=== PATIENT | male | born 1955 | race Hispanic/Latino ===

== ENCOUNTER 2018-07-09 12:42 | Emergency (ER) | payer OTHER ==
[~2018-07-09] VITALS: Ht 180.3 cm; Wt 90.7 kg
[2018-07-09] MEDS ORDERED: NITROGLYCERIN 2% OINT 1 GM PKT TOP ONE (13:00)
[2018-07-09] MEDS ORDERED: ACETAMINOPHEN 325 MG TAB PO ONE (13:00)
[2018-07-09] MEDS ORDERED: FUROSEMIDE INJ 10 MG/ML 4 ML VIAL IV ONE (13:00)
[2018-07-09 13:08] LABS: BASOPHILS # (AUTO) 0.1 (0.0-0.1); EOSINOPHILS # (AUTO) 0.1 (0.0-0.4); EOSINOPHILS % 1.5 % (0.0-6.0); HEMATOCRIT 40.8 % (38.2-49.6); HEMOGLOBIN 13.9 g/dL (14.0-18.0); LYMPHOCYTES # (AUTO) 3.1 (1.0-3.2); MEAN CORPUSCULAR HEMOGLOBIN 30.5 pg (28-32); MEAN CORPUSCULAR HGB CONC 34.1 g/dL (31-35); MEAN CORPUSCULAR VOLUME 89.7 fL (81-99); MONOCYTES # (AUTO) 0.6 (0.2-0.8); MONOCYTES % 7.7 % (4.4-11.3); PLATELET COUNT 248 x10e3/uL (140-360); RED BLOOD COUNT 4.55 x10e6/uL (4.3-5.7); RED CELL DISTRIBUTION WIDTH 13.4 % (11.7-14.4)
[2018-07-09 13:16] LABS: INR 1.13; PARTIAL THROMBOPLASTIN TIME 26.4 seconds (23.8-35.5); PROTHROMBIN TIME 13.6 seconds (11.9-14.5)
[2018-07-09 13:23] LABS: ALANINE AMINOTRANSFERASE 39 IU/L (0-55); ALBUMIN 3.9 g/dL (3.5-5.0); ALBUMIN/GLOBULIN RATIO 0.9 (0.8-2.0); ALKALINE PHOSPHATASE 43 IU/L (40-150); ANION GAP 14.8 mmol/L (8-16); BLOOD UREA NITROGEN 19 mg/dL (7-26); BUN/CREATININE RATIO 19 (6-25); CALCIUM 9.7 mg/dL (8.4-10.2); CARBON DIOXIDE 21 mmol/L (22-29); CHLORIDE 104 mmol/L (98-107); CREATINE KINASE 185 IU/L (30-200); CREATININE, SERUM 1.02 mg/dL (0.72-1.25); EST GLOMERULAR FILTRATION RATE > 60 ML/MIN (60-); GLUCOSE 92 mg/dL (74-118); POTASSIUM 3.8 mmol/L (3.5-5.1); SODIUM 136 mmol/L (136-145)
--- NOTE | 2018-07-09 13:32 | Diagnostic Imaging Report ---
EXAMINATION: CHEST SINGLE (PORTABLE) COMPARISON: None INDICATION: Shortness of breath DISCUSSION: Frontal view of the chest obtained at 1309 hours. HEART AND MEDIASTINUM: The cardiomediastinal silhouette is top normal in size. This may be due to portable technique. LINES: None. LUNGS: The lungs are well inflated and clear. Pulmonary vasculature is mildly prominent PLEURA: No pleural effusion or pneumothorax. BONES AND SOFT TISSUES: No focal osseous lesion. The soft tissues are normal. IMPRESSION: Mild pulmonary vascular congestion. Signed by: Dr. Dasia Pate MD on 07/09/2018 1:28 PM
[2018-07-09 14:18] VITALS: BP 118/89
--- OUTSIDE RECORDS SUMMARY | 2018-08-08 03:18 | XMS REPORT ---
Author Author [facility] Organization [facility] Address Unknown Phone Unavailable Care Team Providers Care Skimmer Name Role Phone PETERSON, Pat ROHYATT Unavailable Unavailable Payers Payer Name Policy Type Policy Number Effective Date Expiration Date Problems This patient has no known problems. Allergies, Adverse Reactions, Alerts Allergy Name Allergy Type Status Severity Reaction(s) Onset Date Inactive Date Treating Clinician Comments No Known Allergies DA Active U 2018-07-04 00:00:00 Medications This patient has no known medications. Results Test Description Test Time Test Comments Text Results Atomic Results Result Comments CHEST SINGLE (PORTABLE) 2018-07-09 13:28:00 [place] [address] Patient Name: MELBA DE LEON MR #: [id number] : 1955 Age/Sex: 63/M Req #: [id number] Adm Physician: Ordered by: KIKO ROBLES [employer] APPRENTICE Report #: [id number] Location: ER Room/Bed: Procedure: [id number] DX/CHEST SINGLE (PORTABLE) Exam Date: 07/09/18 Exam Time: 1320 REPORT STATUS: Signed EXAMINATION: CHEST SINGLE (PORTABLE) COMPARISON: None INDICATION: Shortness of breath DISCUSSION: Frontal view of the chest obtained at 1309 hours. HEART AND MEDIASTINUM: The cardiomediastinal silhouette is top normal in size. This may be due to portable technique. LINES: None. LUNGS: The lungs are well inflated and clear. Pulmonary vasculature is mildly prominent PLEURA: No pleural effusion or pneumothorax. BONES AND SOFT TISSUES: No focal osseous lesion. The soft tissues are normal. IMPRESSION: Mild pulmonary vascular congestion. Signed by: Dr. Rex Pate MD on 07/09/2018 1:28 PM Dictated By: REX PATE MD [id number] Transcribed By: DIONY on 07/09/18 1328 COPY TO: KIKO ROBLES [employer] APPRENTICE
== END 2018-07-09 14:33 | disposition home or self-care (01) ==
LOC: ER 12:47
DX: R06.00 Dyspnea, unspecified (principal); F41.1 Generalized anxiety disorder; I10 Essential (primary) hypertension
CPT/HCPCS: 36415; 71045; 80053; 82550; 82553; 83880; 84484; 85025; 85379; 85610; 85730; 93005; 99284

== ENCOUNTER → 2018-10-11 | Outpatient (CLI) | payer OTHER ==
--- NOTE | 2018-10-11 14:23 | Diagnostic Imaging Report ---
EXAM: KNEE LEFT THREE VIEWS DATE: 10/11/2018 1:15 PM INDICATION: Fall COMPARISON: None FINDINGS: There is a tiny ossific density adjacent to the medial tibial spine appearing degenerative/chronic. Avulsion injury felt unlikely given lack of significant joint effusion. Cyamella sesamoid bone incidentally noted. There is a probable bone island in the fibular head. IMPRESSION: No definite acute finding. Please see above for full details. Signed by: Dr. Júnior Hardy MD on 10/11/2018 2:20 PM
== END ==
LOC: RAD 13:09
PROVIDERS: ATTEND Family Medicine
DX: M25.562 Pain in left knee (principal)

== ENCOUNTER 2021-09-17 09:21 | Emergency (ER) | payer OTHER, MEDICARE ==
[~2021-09-17] VITALS: Ht 180.3 cm; Wt 90.4 kg
[2021-09-17] MEDS ORDERED: MECLIZINE HCL 12.5 MG TAB PO STA ×2 (09:48→10:14)
[2021-09-17] MEDS ORDERED: MECLIZINE HCL25 MG PO (10:24)
== END 2021-09-17 10:39 | disposition home or self-care (01) ==
LOC: FSED 09:33
DX: R42 Dizziness and giddiness (principal); E11.65 Type 2 diabetes mellitus with hyperglycemia; F41.9 Anxiety disorder, unspecified
CPT/HCPCS: 70450; 80053; 82553; 84484; 85025; 85379; 93005; 99284

== ENCOUNTER 2022-07-07 10:31 | Inpatient (IN) | payer MEDICARE, OTHER ==
[~2022-07-07] VITALS: Ht 182.9 cm; Wt 90.7 kg
[~2022-07-07 10:31] MED LIST: MECLIZINE HCL25 MG PO
[2022-07-07] MEDS ORDERED: ACETAMINOPHEN 1000 MG/100 ML IV STA (11:01)
[2022-07-07] MEDS ORDERED: AMIODARONE HCL 100 ML IV ONE (11:15)
[2022-07-07] MEDS ORDERED: ASPIRIN 325 MG TAB PO ONE (11:15)
[2022-07-07] MEDS ORDERED: AMIODARONE HCL 150MG 100 ML IV SCH (11:15)
[2022-07-07] MEDS ORDERED: AMIODARONE 900MG 500 ML IV SCH ×2 (11:15→11:25)
[2022-07-07] MEDS ORDERED: AMIODARONE HCL 360MG 200 ML IV SCH ×2 (11:15→12:00)
[2022-07-07] MEDS ORDERED: SODIUM CHLORIDE 0.9% 1000ML 1,000 ML IV SCH ×3 (11:15→16:45)
[2022-07-07] MEDS ORDERED: SODIUM CHLORIDE 0.9% 1000ML 1,000 ML ONE (11:16)
[2022-07-07 11:27] LABS: BASOPHILS % 0.3 % (0.0-1.0); EOSINOPHILS % 0.1 % (0.0-6.0); HEMATOCRIT 35.1 % (38.2-49.6); LYMPHOCYTES # (AUTO) 1.3 (1.0-3.2); LYMPHOCYTES % 9.6 % (18.0-39.1); MEAN CORPUSCULAR HEMOGLOBIN 23.7 pg (28-32); MEAN CORPUSCULAR HGB CONC 31.3 g/dL (31-35); MEAN CORPUSCULAR VOLUME 75.5 fL (81-99); MONOCYTES # (AUTO) 0.8 (0.2-0.8); NEUTROPHILS # (AUTO) 11.3 (2.1-6.9); NEUTROPHILS % 83.6 % (38.7-80.0); PLATELET COUNT 287 x10e3/uL (140-360); RED BLOOD COUNT 4.65 x10e6/uL (4.3-5.7); RED CELL DISTRIBUTION WIDTH 18.7 % (11.7-14.4)
[2022-07-07 11:39] LABS: INR 1.16; PROTHROMBIN TIME 15.8 seconds (11.9-14.5)
[2022-07-07 11:40] LABS: PARTIAL THROMBOPLASTIN TIME 38.6 seconds (23.8-35.5)
[2022-07-07 11:46] LABS: ALBUMIN 3.4 g/dL (3.5-5.0); ALBUMIN/GLOBULIN RATIO 0.6 (0.8-2.0); ANION GAP 17.6 mmol/L (8-16); CALCIUM 9.1 mg/dL (8.4-10.2); CREATININE, SERUM 1.69 mg/dL (0.72-1.25); POTASSIUM 3.6 mmol/L (3.5-5.1)
[2022-07-07 11:57] LABS: INFLUENZAE A&B ANTIGEN (RAPID) NEGATIVE (NEGATIVE); RESPIRATORY SYNC. VIRUS NEGATIVE (NEGATIVE)
[2022-07-07 12:02] LABS: STREPTOCOCCUS GRP A ANTIGEN NEGATIVE (NEGATIVE)
[2022-07-07] MEDS ORDERED: ACETAMINOPHEN 325 MG TAB PO ONE (13:30)
[2022-07-07] MEDS ORDERED: IOPAMIDOL 370 MG/ML 100 ML INFUS..BTL INJ ONE (15:06)
[2022-07-07] MEDS ORDERED: METOPROLOL SUCCINATE 25 MG TAB XL PO SCH (17:45)
[2022-07-07 18:41] LABS: CLARITY,URINE SL CLOUDY (CLEAR); COLOR,URINE YELLOW (YELLOW); KETONES,URINE NEGATIVE (NEGATIVE); LEUKOCYTE ESTERASE ,URINE NEGATIVE (NEGATIVE); NITRITE,URINE NEGATIVE (NEGATIVE); PROTEIN,URINE DIPSTICK 2+ (NEGATIVE); URINE UROBILINOGEN 0.2 mg/dL (0.2 - 1)
[2022-07-07 18:55] LABS: AMORPHOUS SEDIMENT,URINE MODERATE (FEW); BACTERIA,URINE MODERATE /HPF; EPITHELIAL CELLS,URINE FEW /LPF; TRANSITIONAL EPI CELLS,URINE RARE
[2022-07-07] MEDS ORDERED: ONDANSETRON HCL INJ 2MG/ML 2ML 2 MG/ML VIAL IV PRN (21:30)
[2022-07-07] MEDS: SODIUM CHLORIDE 0.9% 1000ML 1,000 ML IV SCH ×2 (21:57→21:59)
[2022-07-07] MEDS: APIXABAN 5 MG TABLET PO SCH (21:57)
[2022-07-07] MEDS: ACETAMINOPHEN 325 MG TAB PO PRN (21:59)
[2022-07-08 04:35] LABS: BASOPHILS % 0.3 % (0.0-1.0); EOSINOPHILS % 0.1 % (0.0-6.0); HEMATOCRIT 27.2 % (38.2-49.6); LYMPHOCYTES # (AUTO) 1.1 (1.0-3.2); LYMPHOCYTES % 13.2 % (18.0-39.1); MEAN CORPUSCULAR HEMOGLOBIN 24.1 pg (28-32); MEAN CORPUSCULAR HGB CONC 33.1 g/dL (31-35); MEAN CORPUSCULAR VOLUME 72.9 fL (81-99); MONOCYTES # (AUTO) 0.7 (0.2-0.8); NEUTROPHILS # (AUTO) 6.7 (2.1-6.9); NEUTROPHILS % 77.9 % (38.7-80.0); PLATELET COUNT 241 x10e3/uL (140-360); RED BLOOD COUNT 3.73 x10e6/uL (4.3-5.7); RED CELL DISTRIBUTION WIDTH 18.7 % (11.7-14.4)
[2022-07-08 04:56] LABS: ALBUMIN 2.5 g/dL (3.5-5.0); ALBUMIN/GLOBULIN RATIO 0.6 (0.8-2.0); ANION GAP 15.2 mmol/L (8-16); CALCIUM 7.6 mg/dL (8.4-10.2); CREATININE, SERUM 1.1 mg/dL (0.72-1.25); POTASSIUM 3.2 mmol/L (3.5-5.1)
[2022-07-08 05:07] LABS: % IRON SATURATION 5 % (15-50); IRON 13 ug/dL (65-175); TOTAL IRON BINDING CAPACITY 283 ug/dL (261-478); TRANSFERRIN 202 mg/dL (174-364)
[2022-07-08 05:18] LABS: CREATINE KINASE MB 1.5 ng/mL (0-5.0)
[2022-07-08] MEDS: SODIUM CHLORIDE 0.9% 1000ML 1,000 ML IV SCH ×3 (06:17→16:41)
[2022-07-08] MEDS: APIXABAN 5 MG TABLET PO SCH ×2 (08:50→16:41)
[2022-07-08] MEDS: AMIODARONE HCL 200 MG TAB PO SCH (08:51)
[2022-07-08] MEDS ORDERED: POTASSIUM CHLORIDE 20 MEQ TAB CR PO ONE (09:15)
[2022-07-08 14:27] LABS: CREATINE KINASE MB 2.2 ng/mL (0-5.0)
[2022-07-08] MEDS ORDERED: LOPERAMIDE HCL 2 MG CAP PO PRN (17:15)
[2022-07-08 17:22] VITALS: BP 113/78
[2022-07-08 17:24] VITALS: BP 113/78
[2022-07-08 17:27] VITALS: BP 113/78
[2022-07-08] MEDS: IRON SUCROSE 100 MG in SODIUM CHLORIDE 0.9% 100 ML IV SCH (18:30)
[2022-07-08 20:00] VITALS: BP 107/72
[2022-07-08] MEDS: TAMSULOSIN HCL 0.4 MG CAP PO SCH (20:21)
[2022-07-08 21:30] VITALS: BP 107/72
[2022-07-09] VITALS (8 sets, daily range): BP systolic 94–109; BP diastolic 61–72
[2022-07-09] MEDS: SODIUM CHLORIDE 0.9% 1000ML 1,000 ML IV SCH ×2 (00:47→11:28)
[2022-07-09] MEDS: ACETAMINOPHEN 325 MG TAB PO PRN (00:48)
[2022-07-09] MEDS ORDERED: MECLIZINE HCL 12.5 MG TAB PO STA (00:51)
[2022-07-09] MEDS ORDERED: CYANOCOBALAMIN INJ 1,000 MCG/ML VIAL IM ONE (01:00)
[2022-07-09] MEDS: MECLIZINE HCL 12.5 MG TAB PO SCH ×3 (06:00→22:12)
[2022-07-09 07:11] LABS: ALANINE AMINOTRANSFERASE 29 IU/L (0-55); ALBUMIN 2.3 g/dL (3.5-5.0); ALKALINE PHOSPHATASE 38 IU/L (40-150); ANION GAP 13.9 mmol/L (8-16); BLOOD UREA NITROGEN 54 mg/dL (7-26); BUN/CREATININE RATIO 50 (6-25); CALCIUM 7.9 mg/dL (8.4-10.2); CARBON DIOXIDE 17 mmol/L (22-29); CHLORIDE 113 mmol/L (98-107); CREATININE, SERUM 1.08 mg/dL (0.72-1.25); GLUCOSE 143 mg/dL (74-118); POTASSIUM 3.9 mmol/L (3.5-5.1); SODIUM 140 mmol/L (136-145)
[2022-07-09 07:23] LABS: ALBUMIN/GLOBULIN RATIO 0.5 (0.8-2.0)
[2022-07-09] MEDS ORDERED: PANTOPRAZOLE SOD 40 MG TABEC PO SCH (07:30)
[2022-07-09 07:32] LABS: BASOPHILS % 0.4 % (0.0-1.0); EOSINOPHILS # (AUTO) 0.1 (0.0-0.4); LYMPHOCYTES # (AUTO) 1.2 (1.0-3.2); LYMPHOCYTES % 23.8 % (18.0-39.1); MEAN CORPUSCULAR HEMOGLOBIN 23.7 pg (28-32); MEAN CORPUSCULAR HGB CONC 31.8 g/dL (31-35); MEAN CORPUSCULAR VOLUME 74.4 fL (81-99); MONOCYTES # (AUTO) 0.5 (0.2-0.8); MONOCYTES % 9.8 % (4.4-11.3); NEUTROPHILS # (AUTO) 3.2 (2.1-6.9); NEUTROPHILS % 63.4 % (38.7-80.0); PLATELET COUNT 236 x10e3/uL (140-360); RED BLOOD COUNT 2.66 x10e6/uL (4.3-5.7); RED CELL DISTRIBUTION WIDTH 19.2 % (11.7-14.4)
[2022-07-09 07:37] LABS: HEMOGLOBIN 6.3 g/dL (14.0-18.0)
[2022-07-09 07:38] LABS: HEMATOCRIT 19.8 % (38.2-49.6)
[2022-07-09] MEDS: CYANOCOBALAMIN INJ 1,000 MCG/ML VIAL IM SCH (08:53)
[2022-07-09] MEDS ORDERED: AZITHROMYCIN 250 MG TAB PO SCH (09:00)
[2022-07-09] MEDS ORDERED: SODIUM CHLORIDE 0.9% 250ML 250 ML IV ONE (09:45)
[2022-07-09] MEDS ORDERED: PROPOFOL IV EMULSION 10 MG/ML 20 ML VIAL ONE (12:11)
[2022-07-09] MEDS ORDERED: PHENYLEPHRINE HCL 1% 10 MG/ML VIAL ONE (12:11)
[2022-07-09] MEDS: AMIODARONE HCL 200 MG TAB PO SCH (16:36)
[2022-07-09] MEDS: IRON SUCROSE 100 MG in SODIUM CHLORIDE 0.9% 100 ML IV SCH (16:36)
[2022-07-09] MEDS ORDERED: SODIUM CHLORIDE 0.9% 250ML 250 ML ONE (18:13)
[2022-07-09] MEDS ORDERED: SUCRALFATE 1 GM TAB PO STA (22:01)
[2022-07-09] MEDS: TAMSULOSIN HCL 0.4 MG CAP PO SCH (22:12)
[2022-07-10] VITALS (7 sets, daily range): BP systolic 92–109; BP diastolic 53–69
[2022-07-10] MEDS: SODIUM CHLORIDE 0.9% 1000ML 1,000 ML IV SCH ×3 (02:45→18:15)
[2022-07-10] MEDS: MECLIZINE HCL 12.5 MG TAB PO SCH ×3 (05:49→21:24)
[2022-07-10 06:45] LABS: ANION GAP 14.5 mmol/L (8-16); CALCIUM 7.9 mg/dL (8.4-10.2); CREATININE, SERUM 1.03 mg/dL (0.72-1.25); POTASSIUM 3.5 mmol/L (3.5-5.1)
[2022-07-10] MEDS: AMIODARONE HCL 200 MG TAB PO SCH (08:56)
[2022-07-10] MEDS: SUCRALFATE 1 GM TAB PO SCH ×4 (08:56→21:24)
[2022-07-10] MEDS: CYANOCOBALAMIN INJ 1,000 MCG/ML VIAL IM SCH (08:56)
[2022-07-10 10:57] LABS: BASOPHILS % 0.6 % (0.0-1.0); EOSINOPHILS # (AUTO) 0.2 (0.0-0.4); EOSINOPHILS % 3.3 % (0.0-6.0); LYMPHOCYTES % 28.7 % (18.0-39.1); MEAN CORPUSCULAR HEMOGLOBIN 24.3 pg (28-32); MEAN CORPUSCULAR HGB CONC 31.1 g/dL (31-35); MEAN CORPUSCULAR VOLUME 78.1 fL (81-99); MONOCYTES # (AUTO) 0.4 (0.2-0.8); MONOCYTES % 5.5 % (4.4-11.3); NEUTROPHILS # (AUTO) 4.1 (2.1-6.9); NEUTROPHILS % 58.2 % (38.7-80.0); PLATELET COUNT 282 x10e3/uL (140-360); RED BLOOD COUNT 2.51 x10e6/uL (4.3-5.7); RED CELL DISTRIBUTION WIDTH 19.1 % (11.7-14.4)
[2022-07-10 11:23] LABS: HEMOGLOBIN 6.1 g/dL (14.0-18.0)
[2022-07-10 11:24] LABS: HEMATOCRIT 19.6 % (38.2-49.6)
[2022-07-10] MEDS ORDERED: SODIUM CHLORIDE 0.9% 250ML 250 ML IV ONE ×2 (12:30→20:30)
[2022-07-10] MEDS: IRON SUCROSE 100 MG in SODIUM CHLORIDE 0.9% 100 ML IV SCH (18:15)
[2022-07-10 20:00] LABS: BASOPHILS # (AUTO) 0.1 (0.0-0.1); BASOPHILS % 0.8 % (0.0-1.0); EOSINOPHILS # (AUTO) 0.3 (0.0-0.4); EOSINOPHILS % 3.9 % (0.0-6.0); HEMATOCRIT 21.8 % (38.2-49.6); LYMPHOCYTES # (AUTO) 2.4 (1.0-3.2); LYMPHOCYTES % 31.3 % (18.0-39.1); MEAN CORPUSCULAR HEMOGLOBIN 25.4 pg (28-32); MEAN CORPUSCULAR HGB CONC 31.7 g/dL (31-35); MEAN CORPUSCULAR VOLUME 80.1 fL (81-99); MONOCYTES # (AUTO) 0.4 (0.2-0.8); MONOCYTES % 5.3 % (4.4-11.3); NEUTROPHILS # (AUTO) 4.1 (2.1-6.9); NEUTROPHILS % 52.4 % (38.7-80.0); PLATELET COUNT 285 x10e3/uL (140-360); RED BLOOD COUNT 2.72 x10e6/uL (4.3-5.7); RED CELL DISTRIBUTION WIDTH 19.5 % (11.7-14.4)
[2022-07-10 20:03] LABS: HEMOGLOBIN 6.9 g/dL (14.0-18.0)
[2022-07-10] MEDS ORDERED: FUROSEMIDE INJ 10 MG/ML 2 ML VIAL IV ONE (20:30)
[2022-07-10] MEDS: TAMSULOSIN HCL 0.4 MG CAP PO SCH (21:24)
[2022-07-11] VITALS (7 sets, daily range): BP systolic 94–118; BP diastolic 67–77
[2022-07-11] MEDS: MECLIZINE HCL 12.5 MG TAB PO SCH ×3 (06:00→20:50)
[2022-07-11] MEDS: SODIUM CHLORIDE 0.9% 1000ML 1,000 ML IV SCH (06:13)
[2022-07-11 07:05] LABS: BASOPHILS # (AUTO) 0.1 (0.0-0.1); BASOPHILS % 1.2 % (0.0-1.0); EOSINOPHILS # (AUTO) 0.4 (0.0-0.4); EOSINOPHILS % 4.5 % (0.0-6.0); HEMATOCRIT 23.5 % (38.2-49.6); HEMOGLOBIN 7.7 g/dL (14.0-18.0); LYMPHOCYTES # (AUTO) 2.5 (1.0-3.2); LYMPHOCYTES % 29.8 % (18.0-39.1); MEAN CORPUSCULAR HEMOGLOBIN 26.2 pg (28-32); MEAN CORPUSCULAR HGB CONC 32.8 g/dL (31-35); MEAN CORPUSCULAR VOLUME 79.9 fL (81-99); MONOCYTES # (AUTO) 0.4 (0.2-0.8); NEUTROPHILS # (AUTO) 4.3 (2.1-6.9); NEUTROPHILS % 52.8 % (38.7-80.0); PLATELET COUNT 324 x10e3/uL (140-360); RED BLOOD COUNT 2.94 x10e6/uL (4.3-5.7); RED CELL DISTRIBUTION WIDTH 19.1 % (11.7-14.4)
[2022-07-11 07:32] LABS: ANION GAP 17.4 mmol/L (8-16); CREATININE, SERUM 1.05 mg/dL (0.72-1.25); POTASSIUM 3.4 mmol/L (3.5-5.1)
[2022-07-11 07:33] LABS: CALCIUM 8.2 mg/dL (8.4-10.2)
[2022-07-11] MEDS: SUCRALFATE 1 GM TAB PO SCH ×4 (08:52→20:50)
[2022-07-11] MEDS: AMIODARONE HCL 200 MG TAB PO SCH (08:52)
[2022-07-11] MEDS: CYANOCOBALAMIN INJ 1,000 MCG/ML VIAL IM SCH (08:53)
[2022-07-11] MEDS ORDERED: POTASSIUM CHLORIDE 10MEQ EA PO ONE (11:10)
[2022-07-11] MEDS: TAMSULOSIN HCL 0.4 MG CAP PO SCH (20:50)
[2022-07-12] VITALS: BP 104/65
[2022-07-12 04:00] VITALS: BP 94/61
[2022-07-12] MEDS: MECLIZINE HCL 12.5 MG TAB PO SCH ×2 (06:00→13:11)
[2022-07-12 06:20] LABS: BASOPHILS # (AUTO) 0.1 (0.0-0.1); BASOPHILS % 0.9 % (0.0-1.0); EOSINOPHILS # (AUTO) 0.4 (0.0-0.4); HEMATOCRIT 24.3 % (38.2-49.6); HEMOGLOBIN 7.9 g/dL (14.0-18.0); LYMPHOCYTES # (AUTO) 2.9 (1.0-3.2); LYMPHOCYTES % 26.8 % (18.0-39.1); MEAN CORPUSCULAR HGB CONC 32.5 g/dL (31-35); MEAN CORPUSCULAR VOLUME 79.9 fL (81-99); MONOCYTES # (AUTO) 0.6 (0.2-0.8); MONOCYTES % 5.2 % (4.4-11.3); NEUTROPHILS # (AUTO) 5.8 (2.1-6.9); NEUTROPHILS % 53.5 % (38.7-80.0); PLATELET COUNT 393 x10e3/uL (140-360); RED BLOOD COUNT 3.04 x10e6/uL (4.3-5.7); RED CELL DISTRIBUTION WIDTH 19.8 % (11.7-14.4)
[2022-07-12 07:54] VITALS: BP 113/72
[2022-07-12 08:03] VITALS: BP 113/72
[2022-07-12] MEDS: SUCRALFATE 1 GM TAB PO SCH ×2 (08:55→13:11)
[2022-07-12] MEDS: AMIODARONE HCL 200 MG TAB PO SCH (08:55)
[2022-07-12] MEDS: CYANOCOBALAMIN INJ 1,000 MCG/ML VIAL IM SCH (08:55)
[2022-07-12 09:00] LABS: PLATELET ESTIMATE ADEQUATE
[2022-07-12] MEDS ORDERED: IRON-VITAMIN-MINERAL CAPSULE PO SCH (09:00)
[2022-07-12 09:01] LABS: ANISOCYTOSIS MODERATE; HYPOCHROMASIA MODERATE; MICROCYTOSIS MODERATE; PLATELET MORPHOLOGY COMMENT FEW LARGE; POLYCHROMASIA FEW; RBC MORPHOLOGY COMMENT ABNORMAL
[2022-07-12 09:02] LABS: OVALOCYTES FEW
[2022-07-12] MEDS ORDERED: FEROCON CAPSUL1 EACH PO (10:51)
[2022-07-12] MEDS ORDERED: PANTOPRAZOLE SO40 MG PO (10:51)
[2022-07-12] MEDS ORDERED: AMIODARONE HCL200 MG PO (10:51)
[2022-07-12] MEDS ORDERED: CARAFATE1 GM PO (10:51)
[2022-07-12 11:36] VITALS: BP 115/74
[2022-07-13] MEDS ORDERED: AZITHROMYCIN 250 MG TAB PO SCH (09:00)
== END 2022-07-12 13:49 | disposition home or self-care (01) | DRG 871 ==
LOC: ER 11:02 → ERHOLD 14:33 → MED/SURG2 07-08 16:27
PROVIDERS: ADMIT Internal Medicine; ATTEND Internal Medicine
PROC: 0DB78ZX Excision of Stomach, Pylorus, Via Natural or Artificial Opening Endoscopic, Diagnostic (ICD-10-PCS; 2022-07-09)
PROC: 30233N1 Transfusion of Nonautologous Red Blood Cells into Peripheral Vein, Percutaneous Approach (ICD-10-PCS; 2022-07-09)
PROC: 3E03329 Introduction of Other Anti-infective into Peripheral Vein, Percutaneous Approach (ICD-10-PCS; 2022-07-09)
PROC: 0DB68ZX Excision of Stomach, Via Natural or Artificial Opening Endoscopic, Diagnostic (ICD-10-PCS; principal; 2022-07-09 15:08)
DX: A41.9 Sepsis, unspecified organism (principal); I21.A1 Myocardial infarction type 2; J18.9 Pneumonia, unspecified organism; K25.4 Chronic or unspecified gastric ulcer with hemorrhage; K57.91 Diverticulosis of intestine, part unspecified, without perforation or abscess with bleeding; I48.92 Unspecified atrial flutter; D62 Acute posthemorrhagic anemia; A09 Infectious gastroenteritis and colitis, unspecified; N17.9 Acute kidney failure, unspecified; Z79.01 Long term (current) use of anticoagulants; R77.8 Other specified abnormalities of plasma proteins; N40.1 Benign prostatic hyperplasia with lower urinary tract symptoms; R33.8 Other retention of urine; K21.9 Gastro-esophageal reflux disease without esophagitis; E11.9 Type 2 diabetes mellitus without complications; F41.9 Anxiety disorder, unspecified; D50.9 Iron deficiency anemia, unspecified; Z20.822 Contact with and (suspected) exposure to COVID-19; E87.6 Hypokalemia; E86.0 Dehydration
CPT/HCPCS: 36415; 43239; 71045; 74177; 80048; 80053; 81001; 82270; 82550; 82553; 82607; 82746; 83518; 83540; 83605; 83630; 83880; 84466; 84484; 85025; 85610; 85730; 86850; 86900; 86920; 87040; 87045; 87070; 87086; 87177; 87324; 87400; 87420; 87449; 88305; 88312; 88342; 93005; 93306; 94799; 99284; J0456; J0696; J1756; J1940; J2370; J3420; J7030; J7050; P9016; Q9967

== ENCOUNTER 2023-04-24 14:00 | Emergency (ER) | payer MEDICARE ==
[~2023-04-24] VITALS: Ht 182.9 cm; Wt 83.9 kg
[~2023-04-24 14:00] MED LIST changes: +AMIODARONE HCL200 MG PO; +CARAFATE1 GM PO; +FEROCON CAPSUL1 EACH PO; +FEROSUL325 MG PO; +FLOMAX0.4 MG PO; +PANTOPRAZOLE SO40 MG PO; +PROTONIX20 MG PO
[2023-04-24] MEDS ORDERED: PREDNISONE 20 MG TAB PO ONE (14:45)
[2023-04-24] MEDS ORDERED: PREDNISONE 20 MG TAB ONE (14:45)
[2023-04-24] MEDS ORDERED: FAMOTIDINE 20 MG TAB PO ONE (14:45)
[2023-04-24] MEDS ORDERED: DIPHENHYDRAMINE HCL 25 MG CAP PO ONE (14:45)
[2023-04-24] MEDS ORDERED: DIPHENHYDRAMINE HCL 25 MG CAP ONE (14:46)
[2023-04-24] MEDS ORDERED: FAMOTIDINE 20 MG TAB ONE (14:46)
[2023-04-24 14:52] VITALS: O2SAT 95
[2023-04-24] MEDS ORDERED: PREDNISONE20 MG PO (15:03)
[2023-04-24] MEDS ORDERED: BENADRYL25 M1 PO (15:03)
[2023-04-24] MEDS ORDERED: PEPCID20 MG PO (15:03)
== END 2023-04-24 15:39 | disposition home or self-care (01) ==
LOC: FSED 14:04
DX: L25.9 Unspecified contact dermatitis, unspecified cause (principal); L29.9 Pruritus, unspecified; C85.93 Non-Hodgkin lymphoma, unspecified, intra-abdominal lymph nodes; Z92.21 Personal history of antineoplastic chemotherapy; Z92.3 Personal history of irradiation; K21.9 Gastro-esophageal reflux disease without esophagitis; I48.91 Unspecified atrial fibrillation; K27.9 Peptic ulcer, site unspecified, unspecified as acute or chronic, without hemorrhage or perforation; N40.0 Benign prostatic hyperplasia without lower urinary tract symptoms; F41.9 Anxiety disorder, unspecified; Z79.899 Other long term (current) drug therapy
CPT/HCPCS: 99282; J7512

== ENCOUNTER → 2025-07-19 | Day surgery (SDC) | payer MEDICARE ==
[2025-07-15 09:15] LABS: BASOPHILS % 1.2 % (0.0-1.0); EOSINOPHILS % 3.5 % (0.0-6.0); LYMPHOCYTES % 32.3 % (18.0-39.1); MONOCYTES % 8.7 % (4.4-11.3); NEUTROPHILS % 53.7 % (38.7-80.0); RED CELL DISTRIBUTION WIDTH 14.3 % (11.7-14.4)
[~2025-07-19] MED LIST changes: +BENADRYL25 M1 PO; +ELIQUIS2.5 MG PO; +EPHEDRINE SULFATE INJ 50 MG/ML VIAL ONE; +GLYCOPYRROLATE INJ 0.2 MG/ML VIAL ONE; +LACTATED RINGER'S 1,000 ML ONE; +LIDOCAINE HCL 2% LOCAL INJ 5 ML SDV VIAL INJ ONE; +PEPCID20 MG PO; +PREDNISONE20 MG PO; +PROPOFOL IV EMULSION 10 MG/ML 20 ML VIAL ONE
[2025-07-19 13:56] VITALS: TEMP 98.6
[2025-07-19 14:20] VITALS: BP 130/81; PULSE 70; RESP 18; O2SAT 99
== END | disposition home or self-care (01) ==
LOC: ENDO 11:24
PROVIDERS: ATTEND Internal Medicine Gastroenterology
DX: K22.2 Esophageal obstruction (principal); K29.60 Other gastritis without bleeding; K29.50 Unspecified chronic gastritis without bleeding; K31.A11 Gastric intestinal metaplasia without dysplasia, involving the antrum; Z86.0100 Personal history of colon polyps, unspecified; D64.9 Anemia, unspecified; Z71.89 Other specified counseling; Z01.810 Encounter for preprocedural cardiovascular examination; Z01.812 Encounter for preprocedural laboratory examination; Z79.02 Long term (current) use of antithrombotics/antiplatelets; Z79.899 Other long term (current) drug therapy; Z68.26 Body mass index [BMI] 26.0-26.9, adult; Z71.3 Dietary counseling and surveillance; Z85.72 Personal history of non-Hodgkin lymphomas; Z91.81 History of falling
CPT/HCPCS: 36415; 43239; 43450; 85025; 93005; J2003; J2470; J2704; J7121